=== PATIENT | male | born 1955 | race Caucasian/White ===

== ENCOUNTER 2019-02-22 12:47 | Inpatient (IN) | payer BC ==
[~2019-02-22] VITALS: Ht 195.6 cm; Wt 122.7 kg
[~2019-02-22 12:47] MED LIST: DEXAMETHASONE 4 MG/ML, 1ML ONE; ONDANSETRON 2MG/ML, 2ML ONE; ROCURONIUM 10MG/ML,5ML ONE; SUCCINYLCHOLINE 20 MG/ML, 10ML ONE
[2019-02-22] MEDS ORDERED: LACTATED RINGERS 1,000 ML IV SCH (13:07)
[2019-02-22 13:19] VITALS: BP 161/89
[2019-02-22] MEDS ORDERED: CELE200C PO (13:29)
[2019-02-22] MEDS ORDERED: SCOPOLAMINE PATCH, 1.5MG PATCH.TD72 TD ONE (13:30)
[2019-02-22] MEDS ORDERED: ACETAMINOPHEN 500 MG TABLET PO ONE (13:30)
[2019-02-22] MEDS ORDERED: PLEASE ENTER HEIGHT AND WEIGHT MC SCH (13:30)
[2019-02-22] MEDS ORDERED: PLEASE ENTER ALLERGIES MC SCH (13:30)
[2019-02-22] MEDS ORDERED: GABAPENTIN 300 MG CAPSULE PO ONE (13:30)
[2019-02-22] MEDS ORDERED: FENTANYL PF 250 MCG/5ML ONE ×2 (14:03→17:14)
[2019-02-22] MEDS ORDERED: MIDAZOLAM 1 MG/ML, 2ML ONE (14:03)
[2019-02-22] MEDS ORDERED: BUPIVACAINE LIPOSOME/PF 10ML INFIL ONE (14:17)
[2019-02-22] MEDS ORDERED: ROPIvacaine/PF 0.5%, 20 ML ONE (15:27)
[2019-02-22] MEDS ORDERED: VANCOMYCIN 1,000 MG ONE ×2 (15:27→16:19)
[2019-02-22] MEDS ORDERED: BUPIVACAINE/PF 0.5% ONE (15:27)
[2019-02-22] MEDS ORDERED: CLINDAMYCIN 150 MG/ML, 6ML ONE (15:27)
[2019-02-22] MEDS ORDERED: METHYLENE BLUE 10 MG/ML 10ML ONE (16:00)
[2019-02-22] MEDS ORDERED: ISOSULFAN BLUE 10 MG/ML, 5ML IV ONE (16:19)
[2019-02-22] MEDS ORDERED: PIPERACILLIN/TAZO/PMX 3.375GM 50 ML IV ONE (16:30)
[2019-02-22] MEDS ORDERED: VANCOMYCIN 2,300 MG in SODIUM CHLORIDE 0.9% 500 ML IV ONE (17:00)
[2019-02-22] MEDS: D5%-0.45% NACL 1,000 ML IV SCH (17:40)
[2019-02-22] MEDS ORDERED: hydrALAzine 20 MG/ML, 1ML IV PRN (18:00)
[2019-02-22] MEDS ORDERED: MEPERIDINE/PF 25MG/0.5ML IVPush PRN (18:00)
[2019-02-22] MEDS ORDERED: DIPHENHYDRAMINE 25 MG CAPSULE PO PRN (18:00)
[2019-02-22] MEDS ORDERED: BISACODYL 10 MG SUPP PR PRN (18:00)
[2019-02-22] MEDS ORDERED: ONDANSETRON 2MG/ML, 2ML IVPush PRN (18:00)
[2019-02-22] MEDS ORDERED: ALBUTEROL SULFATE 2.5 MG/3 ML NPPB PRN (18:00)
[2019-02-22] MEDS ORDERED: VANCOMYCIN PMX 1GM/200ML 200 ML IVPB SCH (18:00)
[2019-02-22] MEDS ORDERED: ONDANSETRON 2MG/ML, 2ML IV PRN (18:00)
[2019-02-22] MEDS ORDERED: METOCLOPRAMIDE 5 MG/ML, 2ML IV PRN (18:00)
[2019-02-22] MEDS ORDERED: OXYcodone 5 MG/5 ML ORAL.SOL UDC PO PRN (18:00)
[2019-02-22] MEDS ORDERED: PROMETHAZINE 25 MG/ML, 1ML IV PRN (18:00)
[2019-02-22] MEDS ORDERED: LABETALOL 5MG/ML, 20ML IV PRN (18:00)
[2019-02-22] MEDS ORDERED: SENNA/DOCUSATE TABLET PO PRN (18:00)
[2019-02-22] MEDS ORDERED: KETOROLAC 30 MG/1 ML IV PRN (18:00)
[2019-02-22] MEDS ORDERED: morphine SULFATE 10 MG/ML, 1ML IV PRN (18:00)
[2019-02-22] MEDS ORDERED: HYDROmorphone 1 MG/ML, 1ML INJ IV PRN (18:00)
[2019-02-22] MEDS: FENTANYL PF 100 MCG/2ML IV PRN ×2 (18:10→18:26)
[2019-02-22] MEDS ORDERED: FENTANYL PF 100 MCG/2ML ONE (18:17)
[2019-02-22] MEDS ORDERED: OXYcodone 5 MG/5 ML ORAL.SOL UDC ONE (18:17)
[2019-02-22] MEDS ORDERED: KETOROLAC 30 MG/1 ML ONE (18:30)
[2019-02-22 20:00] VITALS: BP 158/84
[2019-02-22] MEDS ORDERED: PHARMACOKINETIC CONSULTATION MC ONE (20:00)
[2019-02-22] MEDS ORDERED: PHARMACOKINETIC MONITORING MC PRN (20:00)
[2019-02-22] MEDS ORDERED: VANCOMYCIN PER PHARMACY MC PRN (20:00)
[2019-02-22] MEDS: DOCUSATE 100 MG CAPSULE PO SCH (20:45)
[2019-02-23 02:00] VITALS: BP 147/83
[2019-02-23] MEDS: D5%-0.45% NACL 1,000 ML IV SCH ×3 (03:40→23:40)
[2019-02-23 04:00] VITALS: BP 134/75
[2019-02-23 05:25] LABS: CREATININE 0.96 mg/dL (0.7-1.3)
[2019-02-23 06:57] VITALS: BP 137/76
[2019-02-23] MEDS: DOCUSATE 100 MG CAPSULE PO SCH ×2 (08:22→20:25)
[2019-02-23 12:48] VITALS: BP 120/69
[2019-02-23] MEDS: VANCOMYCIN 1,800 MG in SODIUM CHLORIDE 0.9% 250 ML IV SCH (12:52)
[2019-02-23] MEDS ORDERED: VANCOMYCIN 2,000 MG in SODIUM CHLORIDE 0.9% 500 ML IV SCH (16:00)
[2019-02-23 18:47] VITALS: BP 174/71
[2019-02-23 18:59] VITALS: BP 153/68
[2019-02-23] MEDS: CEFAZOLIN PMX 1GM/50ML 50 ML IV SCH (20:25)
[2019-02-24] MEDS: VANCOMYCIN 1,800 MG in SODIUM CHLORIDE 0.9% 250 ML IV SCH ×2 (00:34→13:05)
[2019-02-24 01:54] VITALS: BP 148/79
[2019-02-24] MEDS: CEFAZOLIN PMX 1GM/50ML 50 ML IV SCH ×3 (02:33→20:38)
[2019-02-24 08:18] VITALS: BP 155/75
[2019-02-24] MEDS: DOCUSATE 100 MG CAPSULE PO SCH ×2 (08:37→20:38)
[2019-02-24] MEDS: D5%-0.45% NACL 1,000 ML IV SCH ×2 (09:40→15:44)
[2019-02-24 15:34] VITALS: BP 147/78
[2019-02-24 19:53] VITALS: BP 143/75
[2019-02-25] MEDS: VANCOMYCIN 1,800 MG in SODIUM CHLORIDE 0.9% 250 ML IV SCH ×2 (00:45→13:22)
[2019-02-25 01:55] VITALS: BP 149/82
[2019-02-25] MEDS: CEFAZOLIN PMX 1GM/50ML 50 ML IV SCH ×3 (05:30→21:57)
[2019-02-25] MEDS: D5%-0.45% NACL 1,000 ML IV SCH ×2 (05:40→16:04)
[2019-02-25 07:30] VITALS: BP 172/97
[2019-02-25 07:45] VITALS: BP 152/90
[2019-02-25] MEDS: DOCUSATE 100 MG CAPSULE PO SCH ×2 (07:45→21:00)
[2019-02-25 13:15] LABS: CREATININE 0.79 mg/dL (0.7-1.3)
[2019-02-25 13:37] VITALS: BP 135/79
[2019-02-25 19:50] VITALS: BP 156/87
[2019-02-26 01:30] VITALS: BP 157/83
[2019-02-26] MEDS: VANCOMYCIN 1,800 MG in SODIUM CHLORIDE 0.9% 250 ML IV SCH (01:34)
[2019-02-26] MEDS: D5%-0.45% NACL 1,000 ML IV SCH ×2 (01:40→11:39)
[2019-02-26] MEDS ORDERED: ASPIRIN 81 MG TABLET EC PO SCH (06:00)
[2019-02-26] MEDS: CEFAZOLIN PMX 1GM/50ML 50 ML IV SCH ×2 (06:03→13:59)
[2019-02-26 07:26] VITALS: BP 159/91
[2019-02-26] MEDS: DOCUSATE 100 MG CAPSULE PO SCH (08:40)
[2019-02-26] MEDS ORDERED: DAPTOMYCIN 1,000 MG in SODIUM CHLORIDE 0.9% 100 ML IVPB ONE (10:00)
[2019-02-26] MEDS ORDERED: OXYC-307 PO (13:21)
[2019-02-26 14:06] VITALS: BP 144/85
== END 2019-02-26 15:00 | disposition home or self-care (01) | DRG 858 ==
LOC: ORIP 12:47 → 4NE 18:50 → DCLOUNGE 02-26 14:50
PROVIDERS: ADMIT Orthopaedic Surgery; ATTEND Orthopaedic Surgery
PROC: 3E0T3BZ Introduction of Anesthetic Agent into Peripheral Nerves and Plexi, Percutaneous Approach (ICD-10-PCS; 2019-02-22)
PROC: 0KB50ZZ Excision of Right Shoulder Muscle, Open Approach (ICD-10-PCS; principal; 2019-02-22 15:30)
PROC: 02HV33Z Insertion of Infusion Device into Superior Vena Cava, Percutaneous Approach (ICD-10-PCS; 2019-02-23)
PROC: B5181ZA Fluoroscopy of Superior Vena Cava using Low Osmolar Contrast, Guidance (ICD-10-PCS; 2019-02-23)
PROC: B548ZZA Ultrasonography of Superior Vena Cava, Guidance (ICD-10-PCS; 2019-02-23)
DX: T81.42XA Infection following a procedure, deep incisional surgical site, initial encounter (principal); Z90.49 Acquired absence of other specified parts of digestive tract; Y83.8 Other surgical procedures as the cause of abnormal reaction of the patient, or of later complication, without mention of misadventure at the time of the procedure; Y92.89 Other specified places as the place of occurrence of the external cause
CPT/HCPCS: 36415; 36573; 80202; 82565; 84520; 87070; 87075; 87176; 87205; G0378; J0690; J0878; J1100; J1885; J2250; J2405; J2795; J3010; J3370; C1751; C1776; J0330; J7050; Q9968